=== PATIENT | female | born 1985 | race Caucasian/White ===

== ENCOUNTER 2017-05-06 15:28 | Emergency (ER) | payer MEDICAID, OTHER ==
[~2017-05-06] VITALS: Ht 157.5 cm; Wt 82.0 kg
[2017-05-06 15:41] VITALS: Ht 157.5 cm; Wt 82.0 kg
[2017-05-06] MEDS ORDERED: ONDANSETRON 4 MG INJ IV STA (19:02)
[2017-05-06] MEDS ORDERED: ASPIRIN 325 MG TAB PO STA (19:02)
[2017-05-06 19:53] LABS: ADD SCAN DIFF NO
[2017-05-06 19:57] LABS: BASOPHIL # 0.1 10^3/ul (0.0-0.1); BASOPHILS % 0.7 % (0.0-2.0); EOSINOPHILS # 0.3 10^3/ul (0.0-0.5); EOSINOPHILS % 3.5 % (0.0-7.0); HEMATOCRIT 40.5 % (37.0-47.0); LYMPHOCYTES # 2.2 10^3/ul (0.8-2.9); LYMPHOCYTES % 27.1 % (15.0-51.0); MEAN CORPUSCULAR HEMOGLOBIN 31.2 pg (29.0-33.0); MEAN CORPUSCULAR HGB CONC 34.6 g/dl (32.0-37.0); MEAN CORPUSCULAR VOLUME 90.2 fl (82.0-101.0); MONOCYTE # 0.5 10^3/ul (0.3-0.9); MONOCYTES % 6.6 % (0.0-11.0); NEUTROPHIL # 5.1 10^3/ul (1.6-7.5); NEUTROPHILS % 61.9 % (39.0-77.0); PLATELET COUNT 361 10^3/UL (140-415); RED BLOOD COUNT 4.49 10^6/ul (4.20-5.40); RED CELL DISTRIBUTION WIDTH 12.5 % (11.5-14.5); WHITE BLOOD COUNT 8.2 10^3/ul (4.8-10.8)
[2017-05-06 20:11] LABS: INR 0.95; PROTIME 12.7 Sec (12.2-14.2)
[2017-05-06 20:12] LABS: PARTIAL THROMBOPLASTIN TIME 30.5 Sec (25.0-35.0)
[2017-05-06 20:14] LABS: ANION GAP 15 (8-16); BLOOD UREA NITROGEN 16 mg/dl (7-20); CALCIUM 9.8 mg/dl (8.4-10.2); CARBON DIOXIDE 23 mmol/L (21-31); CHLORIDE 107 mmol/L (97-110); GLUCOSE 97 mg/dl (70-220); SODIUM 141 mmol/L (135-144)
--- NOTE | 2017-05-06 20:18 | RADRPT ---
PROCEDURE: XR Chest AP portable CLINICAL INDICATION: Chest pain TECHNIQUE: An AP portable radiograph of the chest was submitted. COMPARISON: None. FINDINGS: Support Hardware: None Cardiovascular: The cardiovascular silhouette appears unremarkable. Lung Alonzo: The lung alonzo appear clear with no nodule, alveolar infiltrate, or interstitial promi nence evident. Pleural Spaces: No pneumothorax or pleural effusion is identified. Osseous Structures: The osseous structures appear intact. Soft Tissues: The soft tissues appear unremarkable. IMPRESSION: Unremarkable portable chest. Physician Swati Date Time Electronically viewed and signed by Elly Loyd Physician on 05/06/2017 20:18 RH/
--- NOTE | 2017-05-06 20:19 | ERD ---
ER Documentation Chief Complaint Date/Time DATE: 05/06/17 TIME: 20:08 Chief Complaint HAS CP TAKES BP MEDS IN HER COUNTRY AND HAS NOT TAKEN THEM IN 1 YEAR HPI This 32-year-old Citizen [place]-speaking female presents to the emergency department for chest pain 3 days. Patient denies any known causative factor, reports that pain started in the morning 3 days ago without injury, pain is located under her left breast and radiates to left sternal border, currently described as pressure, palpitations, shortness of breath yesterday. Patient reports nausea without vomiting. Patient has history of hypertension unmedicated 1 year related to no insurance. Patient denies abdominal pain, vomiting, dizziness. ROS All systems reviewed and are negative except as per history of present illness. Medications Home Meds Active Scripts Ibuprofen* (Motrin*) 400 Mg Tab, 400 MG PO Q6, #30 TAB Prov:UNIQUE,LAYLA 05/06/17 Aspirin (Aspirin) 325 Mg Tablet.dr, 325 MG PO DAILY for 30 Days Prov:UNIQUE,LAYLA 05/06/17 PMhx/Soc History of Surgery: No Anesthesia Reaction: No Hx Neurological Disorder: No Hx Respiratory Disorders: No Hx Cardiac Disorders: No Hx Psychiatric Problems: No Hx Miscellaneous Medical Probl: No Hx Substance Use: No Hx Tobacco Use: Yes Smoking Status: Light tobacco smoker Physical Exam Vitals Vitals stable, blood pressure 184/120. Physical Exam Const: Well-appearing, nondiaphoretic, no acute distress Head: Atraumatic Eyes: Normal Conjunctiva, PERRLA, EOMI ENT: Normal External Ears, Nose and Mouth. Neck: Full range of motion Resp: Clear to auscultation bilaterally, no rales wheezes or rhonchi, no respiratory distress, no Cardio: S1-S2, no S3, no S4, regular rate and rhythm Abd: Soft, non tender, non distended. No epigastric Skin: Back: Ext: Neur: Awake and alert Psych: Normal Mood and Affect Results 24 hrs Laboratory Tests Test 05/06/17 19:35 White Blood Count 8.210^3/ul Red Blood Count 4.4910^6/ul Hemoglobin 14.0g/dl Hematocrit 40.5% Mean Corpuscular Volume 90.2fl Mean Corpuscular Hemoglobin 31.2pg Mean Corpuscular Hemoglobin Concent 34.6g/dl Red Cell Distribution Width 12.5% Platelet Count 64383^3/UL Mean Platelet Volume 10.0fl Neutrophils % 61.9% Lymphocytes % 27.1% Monocytes % 6.6% Eosinophils % 3.5% Basophils % 0.7% Nucleated Red Blood Cells % 0.0/100WBC Neutrophils # 5.110^3/ul Lymphocytes # 2.210^3/ul Monocytes # 0.510^3/ul Eosinophils # 0.310^3/ul Basophils # 0.110^3/ul Nucleated Red Blood Cells # 0.010^3/ul Prothrombin Time 12.7Sec Prothrombin Time Ratio 1.0 INR International Normalized Ratio 0.95 Activated Partial Thromboplast Time 30.5Sec Sodium Level 141mmol/L Potassium Level 4.0mmol/L Chloride Level 107mmol/L Carbon Dioxide Level 23mmol/L Anion Gap 15 Blood Urea Nitrogen 16mg/dl Creatinine 1.20mg/dl Glucose Level 97mg/dl Calcium Level 9.8mg/dl Troponin I < 0.012ng/ml Current Medications Medications (Trade) Dose Ordered Sig/Bing Route PRN Reason Start Time Stop Time Status Last Admin Dose Admin Aspirin (Aspirin) 325 mg ONCE STAT PO 05/06/17 19:02 05/06/17 19:12 DC 05/06/17 19:52 Ondansetron HCl (Zofran Inj) 4 mg ONCE STAT IV 05/06/17 19:02 05/06/17 19:12 DC 05/06/17 19:51 Interpretation text CBC shows no evidence of hemorrhage or infection Chemistry shows no evidence of significant electrolyte abnormalities or renal insufficiency Coagulation study showed no concerning coagulpathy Cardiac biomarkers show no evidence of acute myocardial injury or coronary ischemia Procedures/MDM PROCEDURE: XR Chest AP portable CLINICAL INDICATION: Chest pain TECHNIQUE: An AP portable radiograph of the chest was submitted. COMPARISON: None. FINDINGS: Support Hardware: None Cardiovascular: The cardiovascular silhouette appears unremarkable. Lung Alonzo: The lung alonzo appear clear with no nodule, alveolar infiltrate, or interstitial prominence evident. Pleural Spaces: No pneumothorax or pleural effusion is identified. Osseous Structures: The osseous structures appear intact. Soft Tissues: The soft tissues appear unremarkable. IMPRESSION: Unremarkable portable chest. Electronically viewed and signed by Elly Loyd Physician on 05/06/2017 20:18 This pleasant 32-year-old female presents to emergency department for chest pain 3 days. Pain located under left breast radiating to left sternal border. History of hypertension off medication 1 year. Patient is hypertensive 184/ 120. ECG shows a normal sinus rhythm with anterior infarct age undetermined repeat EKG shows normal sinus rhythm. AMI, aortic dissection, aneurysm not suspected. Patient will be evaluated for acute coronary syndromes with laboratory testing , 325 mg aspirin, and Zofran for nausea Patient reports improvement in symptoms after aspirin and Zofran,CBC shows no evidence of hemorrhage or infection ,Chemistry shows no evidence of significant electrolyte abnormalities or renal insufficiency, Coagulation study showed no concerning coagulpathy Cardiac biomarkers show no evidence of acute myocardial injury or coronary ischemia plan to discharge patient home with nonsteroidal anti-inflammatory medication, continue daily aspirin, follow-up with primary physician for full physical including restarting a hypertension medication, and fasting lipid panel. Return to emergency department for any chest pain, shortness of breath, palpitations or dizziness. I feel the patient is stable for discharge at this time. Will be provided with [place]speaking clinics to follow-up N. I have discussed results, examination findings, the treatment plan with the patient and family present prior to discharge. Indications for emergent reevaluation, side effects of medication were also discussed. All questions were answered. Patient verbalizes understanding and agrees with plan of care. Departure Diagnosis: Primary Impression: Chest pain Chest pain type: unspecified Qualified Code: R07.9 - Chest pain, unspecified type Condition: Good Patient Instructions: Chest Pain, Uncertain Cause Additional Instructions: Thank you for for coming to [facility] for your care today. Please ask your nurse or provider if you have questions about your care today and do not leave until all your questions have been answered. Please use any medications given as directed and follow-up with your doctor (or the doctor you were referred to) in the next 2-3 days. If you do not have a primary care doctor you may follow up at the [facility] (listed below). You may also use motrin and tylenol as needed for fever and/or pain unless instructed otherwise by your provider or nurse. Indications for more urgent follow-up have been discussed, but you may return to the Emergency Department at ANY time for any worrisome or worsening symptoms. If you have abdominal pain, please know that no test or exam you received is perfect and you should follow up within 8 hours for continued pain. If you had any imaging studies today, such as an X-Ray or CT Scan, these studies will be reviewed later by a radiologist. You will be called if there are important findings that were not identified today, so make sure the contact information you provided at registration is correct. If you received any narcotic pain control medicine today, such as Vicodin, Morphine or Dilaudid, your coordination and judgment may be affected for a number of hours. Please do not drive or operate heavy machinery, and you may want someone to assist you at home. If you were given a prescription for narcotic medication, be aware that it is very addictive- use sparingly and only if necessary. LAYLA CALHOUN May 06, 2017 20:18 LAYLA CALHOUN May 06, 2017 20:18
[2017-05-06 20:28] LABS: TROPONIN-I < 0.012 ng/ml (0.00-0.12)
[2017-05-06] MEDS ORDERED: ASPI325T32 PO (21:12)
[2017-05-06] MEDS ORDERED: IBUP400T22 PO (21:12)
[2017-05-06 21:31] VITALS: BP 163/102; PULSE 80; RESP 18
== END 2017-05-06 21:33 | disposition home or self-care (01) ==
LOC: FTE 15:28
DX: R07.9 Chest pain, unspecified (principal); I10 Essential (primary) hypertension; F17.210 Nicotine dependence, cigarettes, uncomplicated; R11.0 Nausea
CPT/HCPCS: 36415; 71010; 80048; 84484; 85025; 85610; 85730; 93005; 96374; J2405; Z7502; Z7610

== ENCOUNTER 2018-01-25 05:10 | Inpatient (IN) | END 2018-01-27 23:15 | disposition home or self-care (01) | DRG 775 ==